=== PATIENT | male | born 1965 | race Two or more races ===

== ENCOUNTER 2022-09-25 08:32 | Emergency (ER) | payer SELFPAY ==
[~2022-09-25] VITALS: Ht 165.1 cm; Wt 75.4 kg
[2022-09-25 08:35] VITALS: BP 156/90
[2022-09-25] MEDS ORDERED: TETANUS-DIPTH-ACEL PERTUSSIS 0.5ML SYR Tdap IM ONE (09:15)
[2022-09-25] MEDS ORDERED: CEPH500C PO (09:19)
== END 2022-09-25 09:54 | disposition home or self-care (01) ==
LOC: ER 08:32
DX: S61.011A Laceration without foreign body of right thumb without damage to nail, initial encounter (principal); W25.XXXA Contact with sharp glass, initial encounter; Y93.89 Activity, other specified; Y92.89 Other specified places as the place of occurrence of the external cause; Y99.8 Other external cause status
CPT/HCPCS: 12002; 90471; 90715